=== PATIENT | female | born 1970 | race Caucasian/White ===

== ENCOUNTER → 2017-09-18 | Outpatient (CLI) | payer SELFPAY ==
[~2017-09-18] MED LIST: ADVAIR 250/501 DISK IH; ALBUTEROL17 GM IH; EFFEXOR37.5 MG PO; PRILOSEC20 MG PO; PRINZIDE 20-251 EACH PO; XANAX0.5 MG PO
== END | disposition home or self-care (01) ==
LOC: RAD 13:18
DX: M47.895 Other spondylosis, thoracolumbar region (principal); M46.87 Other specified inflammatory spondylopathies, lumbosacral region; M54.5 Low back pain; G89.29 Other chronic pain
CPT/HCPCS: 72050; 72114